=== PATIENT | male | born 1970 | race Caucasian/White ===

== ENCOUNTER 2018-07-10 09:15 | Emergency (ER) | payer OTHER ==
--- NOTE | 2018-07-10 09:59 | EDM.PDOC ---
ED HPI GENERAL MEDICAL PROBLEM - General Chief Complaint: Eye Problems Stated Complaint: EYE IRRITATION Time Seen by Provider: 07/10/18 09:55 - History of Present Illness INITIAL COMMENTS - FREE TEXT/NARRATIVE: HISTORY AND PHYSICAL: History of present illness: Patient is a 47 y/o male who presents with 3 days of right eyelid irritation with some itching that has been gradual in onset. The patient was glasses and contact lenses and does work in [employer] and says that he does have some seasonal allergies but is currently not taking any allergy medications. The patient says he doesn't have any visual pain Suzy Sweetwater or foreign body sensation but the eyelid is swollen and discomforting. He says that when he wakes in the morning it is more swollen as the day goes on he gets better. He says he has been rubbing the area but is trying not to. He has not had any drainage from the area or any trauma. He has no sinus pain or pressure no nasal congestion and no other systemic complaints. The patient does tell me that he has not had a reevaluation of his glasses and his prescription for about 10 years. Review of systems: As per history of present illness and below otherwise all systems reviewed and negative. Past medical history: As per history of present illness and as reviewed below otherwise noncontributory. Surgical history: As per history of present illness and as reviewed below otherwise noncontributory. Social history: No reported history of drug or alcohol abuse. Family history: As per history of present illness and as reviewed below otherwise noncontributory. Physical exam: General: Well-developed well-nourished man who is nontoxic and not photophobic, exam. Vital signs were noted by me. Visual acuity as per nursing= right eye 20/ 25 left eye 20/20. HEENT: Atraumatic, normocephalic, pupils reactive, EOMs intact, there is no scleral injection and no photophobia, the right upper eyelid is diffusely edematous but the patient is able to open his eye and there is no drainage visualized. There is no bony orbital tenderness or crepitus, negative for conjunctival pallor or scleral icterus, mucous membranes moist, throat clear, neck supple, nontender, trachea midline. No gross foreign body is appreciated Lungs: Clear to auscultation, breath sounds equal bilaterally, chest nontender. Heart: S1S2, regular rhythm no overt murmurs Abdomen: Soft, nondistended, nontender. NABS Pelvis: . Deferred Genitourinary: Deferred. Rectal: Deferred. Extremities: Atraumatic, full range of motion Neurovascular unremarkable. Neuro: Awake, alert, oriented. Cranial nerves II through XII unremarkable. Cerebellum unremarkable. Motor and sensory unremarkable throughout. Exam nonfocal. Diagnostics: Visual acuity Therapeutics: [] I advised the patient to start [id number] antihistamine such as Claritin or Darlene as he has a history of allergies and this may be allergy related. I' ve also advised him to get new eye exam and have his prescription checked and I will also give him ointment for the blepharitis. Impression: Right eye blepharitis Definitive disposition and diagnosis as appropriate pending reevaluation and review of above. right eye Pain Score (Numeric/FACES): 5 - Related Data Allergies Allergy/AdvReac Type Severity Reaction Status Date / Time No Known Allergies Allergy Verified 07/10/18 09:26 Home Meds: Home Meds Naproxen Sodium [Aleve] 220 mg PO ASDIRECTED 07/10/18 [History] Past Medical History - Past Health History Medical/Surgical History: Denies Medical/Surgical History HEENT History: Reports: None Cardiovascular History: Reports: None Respiratory History: Reports: None Gastrointestinal History: Reports: None Genitourinary History: Reports: None Musculoskeletal History: Reports: None Neurological History: Reports: None Psychiatric History: Reports: None Endocrine/Metabolic History: Reports: None Hematologic History: Reports: None Dermatologic History: Reports: None - Infectious Disease History Infectious Disease History: Reports: Chicken Pox - Past Surgical History Male Surgical History: Reports: None Social & Family History - Family History Family Medical History: Noncontributory - Tobacco Use Smoking Status *Q: Current Every Day Smoker Years of Tobacco use: 20 Packs/Tins Daily: 1 - Recreational Drug Use Recreational Drug Use: No ED ROS GENERAL - Review of Systems Review Of Systems: ROS reveals no pertinent complaints other than HPI. ED EXAM GENERAL W FULL EYE - Physical Exam Exam: See Below (see dictation) Course - Vital Signs Last Recorded V/S: Last Vital Signs Temp 36.3 C 07/10/18 09:27 Pulse 72 07/10/18 09:27 Resp 18 07/10/18 09:27 BP 146/88 H 07/10/18 09:27 Pulse Ox 96 07/10/18 09:27 - Orders/Labs/Meds Orders: Active Orders 24 hr Category Date Time Status Communication Order [RC] STAT Care 07/10/18 09:56 Active Departure - Departure Time of Disposition: 10:09 Disposition: Home, Self-Care 01 Condition: Good Clinical Impression: Blepharitis of eyelid of right eye Qualifiers: Blepharitis type: unspecified type Eyelid: upper Qualified Code(s): H01.001 - Unspecified blepharitis right upper eyelid - Discharge Information Referrals: PCP,None [Primary Care Provider] - Forms: ED Department Discharge Additional Instructions: The following information is given to patients seen in the emergency department who are being discharged to home. This information is to outline your options for follow-up care. We provide all patients seen in our emergency department with a follow-up referral. The need for follow-up, as well as the timing and circumstances, are variable depending upon the specifics of your emergency department visit. If you don't have a primary care physician on staff, we will provide you with a referral. We always advise you to contact your personal physician following an emergency department visit to inform them of the circumstance of the visit and for follow-up with them and/or the need for any referrals to a consulting specialist. The emergency department will also refer you to a specialist when appropriate. This referral assures that you have the opportunity for followup care with a specialist. All of these measure are taken in an effort to provide you with optimal care, which includes your followup. Under all circumstances we always encourage you to contact your private physician who remains a resource for coordinating your care. When calling for followup care, please make the office aware that this follow-up is from your recent emergency room visit. If for any reason you are refused follow-up, please contact the [facility] emergency department at and ask to speak to the emergency department charge nurse. [facility]--ophthalmology [address] [place] [address] Try to avoid rubbing the eye and wear goggles and protect her eyes as much as possible when you're at work. Please use [id number] Claritin or Darlene as we discussed and use antibiotic ointment as prescribed. Please call and schedule a follow-up appointment with an malware analyst to have your prescription for your glasses rechecked and adjusted and also contacted our personal property assessor at [facility] for further care and evaluation of the blepharitis. Return to ER as needed and as discussed - My Orders Last 24 Hours: My Active Orders 07/10/18 09:56 Communication Order [RC] STAT - Assessment/Plan Last 24 Hours: My Active Orders 07/10/18 09:56 Communication Order [RC] STAT
== END 2018-07-10 10:20 | disposition home or self-care (01) ==
LOC: MW.ED 09:15
DX: H01.001 Unspecified blepharitis right upper eyelid (principal); F17.210 Nicotine dependence, cigarettes, uncomplicated
CPT/HCPCS: 99282; 99283